=== PATIENT | male | born 1990 | race Caucasian/White ===

== ENCOUNTER 2019-04-06 12:29 | Emergency (ER) | payer BC ==
[~2019-04-06] VITALS: Ht 180.3 cm; Wt 74.8 kg
[~2019-04-06 12:29] MED LIST: ACETAMINOPHEN-1 EAC1 PO; IBUPROFEN 800800 M1 PO; ROBAXIN500 MG PO
[2019-04-06 12:36] VITALS: BP 135/85
[2019-04-06] MEDS ORDERED: CENTANY30 GM TOP (12:59)
[2019-04-06] MEDS ORDERED: IBUPROFEN 800800 M1 PO (13:06)
[2019-04-06] MEDS ORDERED: TYLENOL WITH CO1 TA1 PO (13:25)
== END 2019-04-06 14:15 | disposition home or self-care (01) ==
LOC: M.ERS 12:29
DX: S61.012A Laceration without foreign body of left thumb without damage to nail, initial encounter (principal); W26.0XXA Contact with knife, initial encounter; Y93.89 Activity, other specified; Y92.89 Other specified places as the place of occurrence of the external cause; Y99.8 Other external cause status

== ENCOUNTER 2020-02-15 10:07 | Emergency (ER) | payer BC ==
[~2020-02-15] VITALS: Ht 177.8 cm; Wt 72.6 kg
[~2020-02-15 10:07] MED LIST changes: +CENTANY30 GM TOP; +TYLENOL WITH CO1 TA1 PO
[2020-02-15] MEDS ORDERED: NORCO 5-325 TA1 EAC2 PO (11:35)
[2020-02-15] MEDS ORDERED: NAPROSYN500 MG PO ×2 (11:35→11:39)
[2020-02-15] MEDS ORDERED: MEDROLDOSEPACK PO (11:39)
[2020-02-15] MEDS ORDERED: ZANAFLEX4 MG PO (11:39)
[2020-02-15] MEDS ORDERED: TRAMADOL 50 MG50 MG PO (11:39)
[2020-02-15 11:56] VITALS: BP 128/74
== END 2020-02-15 11:57 | disposition home or self-care (01) ==
LOC: M.ERS 10:07
DX: S20.211A Contusion of right front wall of thorax, initial encounter (principal); W01.0XXA Fall on same level from slipping, tripping and stumbling without subsequent striking against object, initial encounter; Y93.89 Activity, other specified; Y92.89 Other specified places as the place of occurrence of the external cause; Y99.8 Other external cause status

== ENCOUNTER → 2020-06-22 | Outpatient (CLI) | payer BC ==
[~2020-06-22] MED LIST changes: +MEDROLDOSEPACK PO; +NAPROSYN500 MG PO; +NORCO 5-325 TA1 EAC2 PO; +TRAMADOL 50 MG50 MG PO; +ZANAFLEX4 MG PO
== END ==
LOC: M.RAD 16:04
PROVIDERS: ATTEND Internal Medicine
DX: M25.522 Pain in left elbow (principal); R20.0 Anesthesia of skin